=== PATIENT | female | born 1960 | race African-American/Black ===

== ENCOUNTER 2017-06-25 08:17 | Emergency (ER) | payer MEDICAID ==
[~2017-06-25] VITALS: Ht 165.1 cm; Wt 55.0 kg
[~2017-06-25 08:17] MED LIST: ATENOLOL; EDURANT; HCTZ; [UNRECOGNIZED DRUG - OTHER]; [UNRECOGNIZED DRUG - OTHER]
[2017-06-25] MEDS ORDERED: SODIUM CHLORIDE 0.9% 1,000 ML IV ONE (08:31)
[2017-06-25] MEDS ORDERED: ONDANSETRON HCL 4MG/2ML VIAL IV STA (08:31)
[2017-06-25 08:42] LABS: BASOPHILS % 0.8 % (0.0-2.0); EOSINOPHILS % 0.6 % (0.0-5.0); HEMATOCRIT. 42.7 % (36.0-48.0); HEMOGLOBIN. 14.7 g/dL (12.0-16.0); LYMPHOCYTES % 32.9 % (20.0-50.0); MEAN CORPUSCULAR HEMOGLOBIN 32.5 pg (28.0-32.0); MEAN CORPUSCULAR VOLUME 94.3 fL (81.0-99.0); MONOCYTES % 4.3 % (2.0-8.0); NEUTROPHILS % 61.4 % (40.0-76.0); PLATELET 200 x1000/uL (130-400); RED BLOOD CELL COUNT 4.53 mill/uL (4.2-5.4); RED CELL DISTRIBUTION WIDTH 12.7 % (11.6-14.6)
[2017-06-25] MEDS ORDERED: KETOROLAC 30MG/ML VIAL IV ONE (08:45)
[2017-06-25] MEDS ORDERED: FAMOTIDINE 20MG/2ML VIAL IV ONE (08:45)
[2017-06-25 08:47] LABS: CHLORIDE 107 mEq/L (98-107)
[2017-06-25 08:56] LABS: CARBON DIOXIDE 21 mEq/L (21-32)
[2017-06-25 09:57] LABS: CLARITY URINE CLEAR (CLEAR); COLOR URINE YELLOW (YELLOW); GLUCOSE URINE NEGATIVE (NEGATIVE); KETONES URINE NEGATIVE (NEGATIVE); LEUKOCYTE ESTERASE URINE NEGATIVE (NEGATIVE); NITRITE URINE NEGATIVE (NEGATIVE); OCCULT BLOOD URINE NEGATIVE (NEGATIVE); PROTEIN URINE NEGATIVE (NEGATIVE); SPECIFIC GRAVITY URINE 1.014 (1.005-1.030); UROBILINOGEN URINE 0.2 E.U./dL (0.2-1.0)
[2017-06-25 10:09] LABS: *AMPHETAMINES SCREEN URINE NEGATIVE (NEGATIVE); *BARBITURATES SCREEN URINE NEGATIVE (NEGATIVE); *BENZODIAZEPINES SCREEN URINE NEGATIVE (NEGATIVE); *COCAINE SCREEN URINE NEGATIVE (NEGATIVE); CANNABINOID URINE SCREEN PRESUMTIVE POSITIVE (NEGATIVE); METHADONE URINE SCREEN NEGATIVE (NEGATIVE); OPIATES URINE SCREEN NEGATIVE (NEGATIVE); PHENCYCLIDINE URINE SCREEN NEGATIVE (NEGATIVE)
[2017-06-25 10:49] VITALS: BP 108/65
== END 2017-06-25 11:03 | disposition home or self-care (01) ==
LOC: ER 08:17
DX: R10.13 Epigastric pain (principal); I10 Essential (primary) hypertension
CPT/HCPCS: 36415; 80053; 80305; 81003; 83690; 85025; 96361; 96374; 96375; 99284; J1885; J2405; J3490; J7030; Z7610

== ENCOUNTER 2017-08-21 10:34 | Inpatient (IN) | payer MEDICAID ==
[~2017-08-21] VITALS: Ht 157.5 cm; Wt 67.1 kg
[2017-08-21] VITALS (47 sets, daily range): BP systolic 81–134; BP diastolic 51–97
[~2017-08-21 10:34] MED LIST changes: +ETOMIDATE 2MG/ML 10ML VIAL IV ONE; +SUCCINYLCHOLINE CHLORIDE 200MG/10ML VIAL IV ONE
[2017-08-21] MEDS ORDERED: ETOMIDATE 2MG/ML 10ML VIAL IV ONE ×2 (11:00)
[2017-08-21] MEDS ORDERED: SUCCINYLCHOLINE CHLORIDE 200MG/10ML VIAL IV ONE (11:00)
[2017-08-21] MEDS ORDERED: MIDAZOLAM HCL 5 MG/ML VIAL ONE (11:13)
[2017-08-21] MEDS ORDERED: PROPOFOL 10MG/ML 100ML 100 ML IV ONE (11:20)
[2017-08-21] MEDS ORDERED: DEXAMETHASONE 10 MG/ML VIAL IV ONE (11:30)
[2017-08-21] MEDS ORDERED: PROPOFOL 10MG/ML 100ML 100 ML IV SCH (11:30)
[2017-08-21 11:55] LABS: *AMPHETAMINES SCREEN URINE NEGATIVE (NEGATIVE); *BARBITURATES SCREEN URINE NEGATIVE (NEGATIVE); *BENZODIAZEPINES SCREEN URINE NEGATIVE (NEGATIVE); *COCAINE SCREEN URINE NEGATIVE (NEGATIVE); CANNABINOID URINE SCREEN PRESUMTIVE POSITIVE (NEGATIVE); METHADONE URINE SCREEN NEGATIVE (NEGATIVE); OPIATES URINE SCREEN NEGATIVE (NEGATIVE); PHENCYCLIDINE URINE SCREEN NEGATIVE (NEGATIVE)
[2017-08-21 12:02] LABS: BASOPHILS % 1.2 % (0.0-2.0); EOSINOPHILS % 0.8 % (0.0-5.0); HEMOGLOBIN. 11.5 g/dL (12.0-16.0); LYMPHOCYTES % 40.3 % (20.0-50.0); MEAN CORPUSCULAR VOLUME 94.5 fL (81.0-99.0); MEAN PLATELET VOLUME 8.8 fl (7.4-10.4); MONOCYTES % 7.5 % (2.0-8.0); NEUTROPHILS % 50.2 % (40.0-76.0); PLATELET 207 x1000/uL (130-400)
[2017-08-21 12:18] LABS: CARBON DIOXIDE 25 mEq/L (21-32); CHLORIDE 108 mEq/L (98-107)
[2017-08-21] MEDS ORDERED: LORAZEPAM 2MG/ML CPJ ONE (12:20)
[2017-08-21] MEDS ORDERED: ONDANSETRON HCL 4MG/2ML VIAL IV PRN (13:15)
[2017-08-21] MEDS ORDERED: METHYLPREDNISOLONE SOD SUCC 40 MG/ML VIAL IV SCH (14:00)
[2017-08-21] MEDS ORDERED: IPRATROPIUM/ALBUTEROL 0.5-3(2.5)MG/3ML NEB INH PRN (14:00)
[2017-08-21] MEDS ORDERED: IPRATROPIUM/ALBUTEROL 0.5-3(2.5)MG/3ML NEB HHN PRN (14:15)
[2017-08-21] MEDS ORDERED: POTASSIUM CHLORIDE INJ 40 MEQ in SODIUM CHLORIDE 0.9% 250 ML IV ONE (14:15)
[2017-08-21] MEDS ORDERED: CEFEPIME 1,000 MG in DEXTROSE 5% WATER 50 ML IV SCH (14:15)
[2017-08-21] MEDS ORDERED: METRONIDAZOLE 500 MG PREMIX 100 ML IV SCH (14:15)
[2017-08-21] MEDS ORDERED: AZITHROMYCIN 500 MG in DEXT 5% WATER 250 ML IV SCH (14:30)
[2017-08-21] MEDS ORDERED: CEFTRIAXONE 500 MG in DEXTROSE 5% WATER 50 ML IV SCH (14:30)
[2017-08-21] MEDS: METHYLPREDNISOLONE SOD SUCC 125 MG/2 ML VIAL IV SCH ×2 (14:32→20:37)
[2017-08-21] MEDS ORDERED: SODIUM CHLORIDE 0.9% 1,000 ML IV NR (14:42)
[2017-08-21] MEDS ORDERED: EPINEPHRINE 1:1000 1 MG/ML AMP IM NR (15:00)
[2017-08-21 15:09] LABS: BG BASE EXCESS -1.7 mmol/L (-2.0-2.0); BG CARBOXYHEMOGLOBIN 0.3 % (0.5-1.5); BG DEOXYHEMOGLOBIN 0.5 % (0.0-5.0); BG FRACTION INSPIRED OXYGEN 100; BG HCO3 ACT 21.9 mmol/L (22.0-26.0); BG METHEMOGLOBIN 0.4 % (0.0-1.5); BG OXYGEN SATURATION 99.5 % (92.0-98.5); BG OXYHEMOGLOBIN 98.8 % (94.0-97.0); BG PCO2 33.5 mmHg (35.0-45.0); BG PH 7.433 (7.350-7.450); BG PO2 531.8 mmHg (75.0-100.0); BG SAMPLE SITE RIGHT RADIAL; BG TIDAL VOLUME(mL) 450 mL; BG TOTAL HEMOGLOBIN 11.9 g/dL (12.0-18.0); BG VENT MODE VENT - A/C; BG VENT RATE 12 set
[2017-08-21] MEDS: DIPHENHYDRAMINE 50MG/ML VIAL IV SCH ×2 (15:16→20:37)
[2017-08-21] MEDS: FAMOTIDINE 20MG/2ML VIAL IV SCH ×2 (15:17→20:37)
[2017-08-21] MEDS: PROPOFOL 10MG/ML 100ML 100 ML IV PRN ×2 (15:20→20:59)
[2017-08-21] MEDS ORDERED: EPINEPHRINE 1 MG in SODIUM CHLORIDE 0.9% 249 ML IV PRN (15:30)
[2017-08-21 15:54] LABS: D-DIMER 27.78 mg/L FEU (<0.50); PROTHROMBIN TIME 10.7 sec (9.4-11.6)
[2017-08-21] MEDS ORDERED: NOREPINEPHRINE 16 MG in SODIUM CHLORIDE 0.9% 234 ML IV PRN (16:00)
[2017-08-21 16:22] LABS: CARBON DIOXIDE 25 mEq/L (21-32); CHLORIDE 110 mEq/L (98-107); CREATINE KINASE 254 IU/L (26-192); CREATINE KINASE MB FRACTION 2.7 ng/mL (0.5-3.6); TROPONIN I < 0.02 ng/mL (0.00-0.04)
[2017-08-21] MEDS: ENOXAPARIN 40MG/0.4ML SYR SUBCUT SCH (17:01)
[2017-08-21] MEDS: CEFTRIAXONE 1 G PREMIX 50 ML IV SCH (17:01)
[2017-08-21] MEDS: MONTELUKAST SODIUM 10MG TABLET NG SCH (17:02)
[2017-08-21] MEDS: DEXT 5%/0.9% NACL 1,000 ML IV SCH (17:02)
[2017-08-21] MEDS: FENTANYL CITRATE/PF 500 MCG in SODIUM CHLORIDE 0.9% 40 ML IV PRN (19:38)
[2017-08-21] MEDS: IPRATROPIUM/ALBUTEROL 0.5-3(2.5)MG/3ML NEB HHN SCH (20:18)
[2017-08-21 20:27] LABS: CLARITY URINE CLEAR (CLEAR); COLOR URINE YELLOW (YELLOW); KETONES URINE NEGATIVE (NEGATIVE); LEUKOCYTE ESTERASE URINE NEGATIVE (NEGATIVE); NITRITE URINE NEGATIVE (NEGATIVE); OCCULT BLOOD URINE 2+ (NEGATIVE); PH URINE 6.5 (4.5-8.0); PROTEIN URINE NEGATIVE (NEGATIVE); SPECIFIC GRAVITY URINE 1.005 (1.005-1.030); UROBILINOGEN URINE 0.2 E.U./dL (0.2-1.0)
[2017-08-21] MEDS ORDERED: FAMOTIDINE 20MG/2ML VIAL IV SCH (21:00)
[2017-08-22] VITALS (95 sets, daily range): BP systolic 90–136; BP diastolic 45–89
[2017-08-22 00:55] LABS: CREATINE KINASE 229 IU/L (26-192); CREATINE KINASE MB FRACTION 2.2 ng/mL (0.5-3.6)
[2017-08-22 01:00] LABS: TROPONIN I < 0.02 ng/mL (0.00-0.04)
[2017-08-22] MEDS: IPRATROPIUM/ALBUTEROL 0.5-3(2.5)MG/3ML NEB HHN SCH ×4 (02:04→20:40)
[2017-08-22] MEDS: PROPOFOL 10MG/ML 100ML 100 ML IV PRN ×5 (02:06→23:39)
[2017-08-22] MEDS: DIPHENHYDRAMINE 50MG/ML VIAL IV SCH ×2 (02:16→09:15)
[2017-08-22] MEDS: METHYLPREDNISOLONE SOD SUCC 125 MG/2 ML VIAL IV SCH ×4 (02:16→21:25)
[2017-08-22] MEDS: DEXT 5%/0.9% NACL 1,000 ML IV SCH ×3 (02:32→22:22)
[2017-08-22 04:40] LABS: BASOPHILS % 0.4 % (0.0-2.0); HEMATOCRIT. 30.1 % (36.0-48.0); HEMOGLOBIN. 10.3 g/dL (12.0-16.0); LYMPHOCYTES % 9.4 % (20.0-50.0); MEAN CORPUSCULAR HEMOGLOBIN 32.3 pg (28.0-32.0); MEAN CORPUSCULAR VOLUME 94.3 fL (81.0-99.0); MEAN PLATELET VOLUME 8.9 fl (7.4-10.4); MONOCYTES % 0.6 % (2.0-8.0); NEUTROPHILS % 89.6 % (40.0-76.0); PLATELET 174 x1000/uL (130-400); RED CELL DISTRIBUTION WIDTH 12.8 % (11.6-14.6)
[2017-08-22] MEDS: CEFTRIAXONE 1 G PREMIX 50 ML IV SCH ×2 (07:20→16:50)
[2017-08-22] MEDS ORDERED: FAMOTIDINE 20MG TABLET PO SCH (09:00)
[2017-08-22] MEDS: ENOXAPARIN 40MG/0.4ML SYR SUBCUT SCH (09:13)
[2017-08-22] MEDS: FAMOTIDINE 20MG/2ML VIAL IV SCH ×2 (09:14→21:25)
[2017-08-22 09:45] LABS: BG BASE EXCESS -0.7 mmol/L (-2.0-2.0); BG CARBOXYHEMOGLOBIN 0.3 % (0.5-1.5); BG DEOXYHEMOGLOBIN 0.9 % (0.0-5.0); BG FRACTION INSPIRED OXYGEN 50; BG HCO3 ACT 23.7 mmol/L (22.0-26.0); BG METHEMOGLOBIN 0.4 % (0.0-1.5); BG OXYGEN SATURATION 99.1 % (92.0-98.5); BG OXYHEMOGLOBIN 98.4 % (94.0-97.0); BG PCO2 37.9 mmHg (35.0-45.0); BG PH 7.414 (7.350-7.450); BG PO2 215.5 mmHg (75.0-100.0); BG SAMPLE SITE RIGHT RADIAL; BG TIDAL VOLUME(mL) 450 mL; BG TOTAL HEMOGLOBIN 10.3 g/dL (12.0-18.0); BG VENT MODE VENT - A/C; BG VENT RATE 12 set
[2017-08-22] MEDS: MONTELUKAST SODIUM 10MG TABLET NG SCH (16:34)
[2017-08-23] VITALS (70 sets, daily range): BP systolic 57–169; BP diastolic 26–109
[2017-08-23] MEDS: ACETYLCYSTEINE 100MG/ML 10% VIAL 4ML INH SCH ×2 (00:05→13:35)
[2017-08-23] MEDS: IPRATROPIUM/ALBUTEROL 0.5-3(2.5)MG/3ML NEB HHN SCH ×2 (02:34→07:37)
[2017-08-23] MEDS: FENTANYL CITRATE/PF 500 MCG in SODIUM CHLORIDE 0.9% 40 ML IV PRN (03:18)
[2017-08-23] MEDS: METHYLPREDNISOLONE SOD SUCC 125 MG/2 ML VIAL IV SCH ×4 (03:24→21:40)
[2017-08-23] MEDS: CEFTRIAXONE 1 G PREMIX 50 ML IV SCH ×2 (03:24→15:37)
[2017-08-23 05:31] LABS: HEMATOCRIT. 27.6 % (36.0-48.0); HEMOGLOBIN. 9.4 g/dL (12.0-16.0); MEAN CORPUSCULAR HEMOGLOBIN 32.4 pg (28.0-32.0); MEAN CORPUSCULAR VOLUME 94.7 fL (81.0-99.0); MEAN PLATELET VOLUME 10.2 fl (7.4-10.4); PLATELET 163 x1000/uL (130-400); RED BLOOD CELL COUNT 2.92 mill/uL (4.2-5.4); RED CELL DISTRIBUTION WIDTH 12.9 % (11.6-14.6)
[2017-08-23 06:08] LABS: CARBON DIOXIDE 26 mEq/L (21-32); CHLORIDE 112 mEq/L (98-107)
[2017-08-23 07:39] LABS: BG BASE EXCESS -0.2 mmol/L (-2.0-2.0); BG CARBOXYHEMOGLOBIN 0.3 % (0.5-1.5); BG DEOXYHEMOGLOBIN 1.2 % (0.0-5.0); BG FRACTION INSPIRED OXYGEN 40; BG METHEMOGLOBIN 0.3 % (0.0-1.5); BG OXYGEN SATURATION 98.8 % (92.0-98.5); BG OXYHEMOGLOBIN 98.2 % (94.0-97.0); BG PCO2 37.1 mmHg (35.0-45.0); BG PH 7.428 (7.350-7.450); BG PO2 153.4 mmHg (75.0-100.0); BG SAMPLE SITE RIGHT BRACHIAL; BG TIDAL VOLUME(mL) 450 mL; BG TOTAL HEMOGLOBIN 10.6 g/dL (12.0-18.0); BG VENT MODE VENT - A/C; BG VENT RATE 12 set
[2017-08-23] MEDS: DEXT 5%/0.9% NACL 1,000 ML IV SCH ×2 (08:30→18:30)
[2017-08-23 09:12] LABS: ABSOLUTE LYMPHOCYTES 0.8 x10E3/uL (0.7-3.1); ABSOLUTE MONOCYTES 0.1 x10E3/uL (0.1-0.9); ABSOLUTE NEUTROPHILS 7.4 x10E3/uL (1.4-7.0); BASOPHILS 0 % (Not Estab.); HEMATOCRIT 33.2 % (34.0-46.6); HEMOGLOBIN 11.1 g/dL (11.1-15.9); IMMATURE GRANULOCYTES 0 % (Not Estab.); LYMPHOCYTES 9 % (Not Estab.); MEAN CORPUSCULAR HEMOGLOBIN 32.6 pg (26.6-33.0); MEAN CORPUSCULAR HGB CONC. 33.4 g/dL (31.5-35.7); MEAN CORPUSCULAR VOLUME 98 fL (79-97); MONOCYTES 1 % (Not Estab.); NEUTROPHILS 90 % (Not Estab.); PLATELETS 253 x10E3/uL (150-379); RED CELL DISTRIBUTION WIDTH 13.1 % (12.3-15.4); WBC 8.3 x10E3/uL (3.4-10.8)
[2017-08-23] MEDS: FAMOTIDINE 20MG/2ML VIAL IV SCH ×2 (09:43→21:40)
[2017-08-23] MEDS: ENOXAPARIN 40MG/0.4ML SYR SUBCUT SCH (09:44)
[2017-08-23] MEDS ORDERED: POTASSIUM CHLORIDE INJ 20 MEQ in SODIUM CHLORIDE 0.9% 100 ML IV SCH (10:30)
[2017-08-23] MEDS ORDERED: KCL 20MEQ/100ML PREMIX 100 ML IV SCH (10:30)
[2017-08-23 10:33] LABS: PLATELET ESTIMATE NORMAL
[2017-08-23] MEDS ORDERED: ALBUTEROL (0.083%) 2.5MG/3ML NEB HHN PRN (11:30)
[2017-08-23 13:07] LABS: % CD 3 POS. LYMPHOCYTES 62.8 % (57.5-86.2); % CD 4 POS. LYMPHOCYTES 25.9 % (30.8-58.5); % CD 8 POS. LYMPH 39.1 % (12.0-35.5); ABSOLUTE CD 3 502 /uL (622-2402); ABSOLUTE CD 4 HELPER 207 /uL (359-1519); ABSOLUTE CD 8 SUPPRESSOR 313 /uL (109-897); CD4/CD8 RATIO 0.66 (0.92-3.72)
[2017-08-23] MEDS: ALBUTEROL (0.083%) 2.5MG/3ML NEB HHN SCH ×3 (13:30→20:14)
[2017-08-23 13:32] LABS: BG BASE EXCESS 3.7 mmol/L (-2.0-2.0); BG CARBOXYHEMOGLOBIN 0.3 % (0.5-1.5); BG DEOXYHEMOGLOBIN 2.1 % (0.0-5.0); BG FRACTION INSPIRED OXYGEN 30; BG HCO3 ACT 27.7 mmol/L (22.0-26.0); BG METHEMOGLOBIN 0.5 % (0.0-1.5); BG OXYGEN SATURATION 97.9 % (92.0-98.5); BG OXYHEMOGLOBIN 97.1 % (94.0-97.0); BG PCO2 39.5 mmHg (35.0-45.0); BG PH 7.463 (7.350-7.450); BG PO2 109.6 mmHg (75.0-100.0); BG PRESSURE SUPPORT 8; BG SAMPLE SITE RIGHT BRACHIAL; BG TOTAL HEMOGLOBIN 10.9 g/dL (12.0-18.0); BG VENT MODE VENT - CPAP
[2017-08-23] MEDS ORDERED: RACEPINEPHRINE 2.25% 0.5ML NEB VIAL HHN NR (15:10)
[2017-08-23] MEDS: MONTELUKAST SODIUM 10MG TABLET NG SCH (17:00)
[2017-08-24] VITALS (24 sets, daily range): BP systolic 104–145; BP diastolic 59–92
[2017-08-24] MEDS: ALBUTEROL (0.083%) 2.5MG/3ML NEB HHN SCH ×3 (00:02→08:21)
[2017-08-24] MEDS: METHYLPREDNISOLONE SOD SUCC 125 MG/2 ML VIAL IV SCH ×2 (03:20→10:01)
[2017-08-24] MEDS: CEFTRIAXONE 1 G PREMIX 50 ML IV SCH (03:20)
[2017-08-24] MEDS: DEXT 5%/0.9% NACL 1,000 ML IV SCH (03:20)
[2017-08-24 08:04] LABS: BG BASE EXCESS 5.9 mmol/L (-2.0-2.0); BG CARBOXYHEMOGLOBIN 0.2 % (0.5-1.5); BG DEOXYHEMOGLOBIN 2.4 % (0.0-5.0); BG FRACTION INSPIRED OXYGEN 28; BG HCO3 ACT 29.5 mmol/L (22.0-26.0); BG METHEMOGLOBIN 0.5 % (0.0-1.5); BG OXYGEN SATURATION 97.6 % (92.0-98.5); BG OXYHEMOGLOBIN 96.9 % (94.0-97.0); BG PH 7.497 (7.350-7.450); BG PO2 105.3 mmHg (75.0-100.0); BG SAMPLE SITE RIGHT BRACHIAL; BG VENT MODE NASAL CANNULA
[2017-08-24] MEDS ORDERED: P20 PO (09:25)
[2017-08-24] MEDS ORDERED: FAMO40TA70 PO (09:25)
[2017-08-24] MEDS: FAMOTIDINE 20MG/2ML VIAL IV SCH (10:01)
[2017-08-24] MEDS: ENOXAPARIN 40MG/0.4ML SYR SUBCUT SCH (10:02)
[2017-08-24] MEDS ORDERED: POTASSIUM CHLORIDE 20MEQ/PACKET PO NR (10:30)
[2017-08-24] MEDS ORDERED: DARU1TAB PO (10:52)
[2017-08-24] MEDS ORDERED: BENA20TA3 PO (10:55)
[2017-08-24] MEDS ORDERED: EMTR1TAB12 PO (10:57)
[2017-08-24] MEDS ORDERED: LORA10TA7 PO (11:17)
[2017-08-24] MEDS ORDERED: ACETYLCYSTEINE 200MG/ML 20% VIAL 4ML INH SCH (22:00)
== END 2017-08-24 12:45 | disposition home or self-care (01) | DRG 811 ==
LOC: EDBEDREQ 11:44 → ER 12:42 → MICUSO 12:43 → ENRESERV 13:02
PROVIDERS: ADMIT Internal Medicine; ATTEND Internal Medicine
PROC: 0BH17EZ Insertion of Endotracheal Airway into Trachea, Via Natural or Artificial Opening (ICD-10-PCS; principal; 2017-08-21)
PROC: 5A1945Z Respiratory Ventilation, 24-96 Consecutive Hours (ICD-10-PCS; 2017-08-21)
PROC: 30233L1 Transfusion of Nonautologous Fresh Plasma into Peripheral Vein, Percutaneous Approach (ICD-10-PCS; 2017-08-21)
PROC: 30233K1 Transfusion of Nonautologous Frozen Plasma into Peripheral Vein, Percutaneous Approach (ICD-10-PCS; 2017-08-21)
PROC: 02HV33Z Insertion of Infusion Device into Superior Vena Cava, Percutaneous Approach (ICD-10-PCS; 2017-08-21)
PROC: B548ZZA Ultrasonography of Superior Vena Cava, Guidance (ICD-10-PCS; 2017-08-21)
DX: T78.2XXA Anaphylactic shock, unspecified, initial encounter (principal); J96.00 Acute respiratory failure, unspecified whether with hypoxia or hypercapnia; T78.3XXA Angioneurotic edema, initial encounter; I10 Essential (primary) hypertension; R73.9 Hyperglycemia, unspecified; F17.200 Nicotine dependence, unspecified, uncomplicated; R00.1 Bradycardia, unspecified; F43.9 Reaction to severe stress, unspecified; R45.1 Restlessness and agitation; Z79.899 Other long term (current) drug therapy; Z71.6 Tobacco abuse counseling
CPT/HCPCS: 31500; 36415; 36569; 36600; 51702; 71010; 76937; 80048; 80053; 80061; 80305; 81001; 82375; 82550; 82553; 82805; 83036; 83735; 84478; 84484; 85025; 85379; 85610; 86359; 86360; 86850; 86900; 86927; 93970; 94002; 94003; 94640; 99291; C1725; J0171; J0330; J0696; J1100; J1200; J1650; J2060; J2250; J2704; J2930; J3010; J3480; J3490; J7030; J7040; J7042; J7050; J7608; J7611; J7620; P9017; A4315

== ENCOUNTER 2018-01-05 10:04 | Emergency (ER) | payer MEDICAID ==
[~2018-01-05] VITALS: Ht 162.6 cm; Wt 64.0 kg
[~2018-01-05 10:04] MED LIST changes: +DARU1TAB PO; +EMTR1TAB12 PO; -ETOMIDATE 2MG/ML 10ML VIAL IV ONE; +FAMO40TA70 PO; +LORA10TA7 PO; -SUCCINYLCHOLINE CHLORIDE 200MG/10ML VIAL IV ONE
[2018-01-05] MEDS ORDERED: SODIUM CHLORIDE 0.9% 1,000 ML IV ONE ×2 (11:30→14:28)
[2018-01-05] MEDS ORDERED: ONDANSETRON HCL 4MG/2ML VIAL IV STA (11:30)
[2018-01-05] MEDS ORDERED: MORPHINE SULFATE 4 MG/ML CPJ (NOT FOR IM USE) IV STA (11:30)
[2018-01-05 11:58] LABS: BASOPHILS % 0.5 % (0.0-2.0); EOSINOPHILS % 0.1 % (0.0-5.0); HEMATOCRIT. 41.6 % (36.0-48.0); HEMOGLOBIN. 14.3 g/dL (12.0-16.0); LYMPHOCYTES % 13.6 % (20.0-50.0); MEAN CORPUSCULAR HEMOGLOBIN 32.1 pg (28.0-32.0); MEAN CORPUSCULAR VOLUME 93.3 fL (81.0-99.0); MEAN PLATELET VOLUME 9.1 fl (7.4-10.4); MONOCYTES % 2.5 % (2.0-8.0); NEUTROPHILS % 83.3 % (40.0-76.0); PLATELET 203 x1000/uL (130-400); RED BLOOD CELL COUNT 4.45 mill/uL (4.2-5.4); RED CELL DISTRIBUTION WIDTH 13.1 % (11.6-14.6)
[2018-01-05 12:00] LABS: CHLORIDE 106 mEq/L (98-107)
[2018-01-05 12:02] LABS: PROTHROMBIN TIME 10.7 sec (9.4-11.6)
[2018-01-05 12:28] LABS: CLARITY URINE CLEAR (CLEAR); COLOR URINE YELLOW (YELLOW); KETONES URINE 2+ (NEGATIVE); LEUKOCYTE ESTERASE URINE NEGATIVE (NEGATIVE); NITRITE URINE NEGATIVE (NEGATIVE); OCCULT BLOOD URINE NEGATIVE (NEGATIVE); PH URINE 8.5 (4.5-8.0); PROTEIN URINE TRACE (NEGATIVE); SPECIFIC GRAVITY URINE 1.014 (1.005-1.030); UROBILINOGEN URINE 0.2 E.U./dL (0.2-1.0)
[2018-01-05 13:01] LABS: *AMPHETAMINES SCREEN URINE NEGATIVE (NEGATIVE); *BARBITURATES SCREEN URINE NEGATIVE (NEGATIVE); *BENZODIAZEPINES SCREEN URINE NEGATIVE (NEGATIVE); *COCAINE SCREEN URINE NEGATIVE (NEGATIVE); METHADONE URINE SCREEN NEGATIVE (NEGATIVE)
[2018-01-05 13:02] LABS: CANNABINOID URINE SCREEN PRESUMTIVE POSITIVE (NEGATIVE); OPIATES URINE SCREEN NEGATIVE (NEGATIVE); PHENCYCLIDINE URINE SCREEN NEGATIVE (NEGATIVE)
[2018-01-05] MEDS ORDERED: IOHEXOL-300 100 ML BOTTLE ONE (14:21)
[2018-01-05] MEDS ORDERED: FAMOTIDINE 20MG/2ML VIAL IV STA (14:28)
[2018-01-05] MEDS ORDERED: POTASSIUM CHLORIDE 10MEQ TABLET SR PO ONE (14:30)
[2018-01-05] MEDS ORDERED: POTASSIUM CHLORIDE 10MEQ TABLET SR PO NR (15:00)
[2018-01-05 18:14] VITALS: BP 125/75
== END 2018-01-05 18:14 | disposition home or self-care (01) ==
LOC: ER 10:07
DX: R10.84 Generalized abdominal pain (principal); F12.10 Cannabis abuse, uncomplicated; F17.200 Nicotine dependence, unspecified, uncomplicated; Z20.6 Contact with and (suspected) exposure to human immunodeficiency virus [HIV]
CPT/HCPCS: 36415; 71045; 74177; 80053; 80305; 81003; 83690; 85025; 85610; 93005; 96361; 96374; 96375; 99285; J2270; J2405; J3490; J7030; Q9967; Z7610

== ENCOUNTER 2020-12-31 09:15 | Emergency (ER) | payer MEDICAID ==
[~2020-12-31] VITALS: Ht 165.1 cm; Wt 66.0 kg
[2020-12-31] MEDS ORDERED: FAMOTIDINE 20MG/2ML VIAL IV STA (09:31)
[2020-12-31] MEDS ORDERED: ONDANSETRON HCL 4MG/2ML INJ IV STA (09:31)
[2020-12-31] MEDS ORDERED: MORPHINE SULFATE 4 MG/ML CPJ (NOT FOR IM USE) IV STA (09:31)
[2020-12-31] MEDS ORDERED: SODIUM CHLORIDE 0.9% 1,000 ML IV ONE (09:45)
[2020-12-31 09:48] LABS: BASOPHILS % 0.3 % (0.0-2.0); HEMATOCRIT. 41.5 % (36.0-48.0); HEMOGLOBIN. 14.4 g/dL (12.0-16.0); LYMPHOCYTES % 13.7 % (20.0-50.0); MEAN CORPUSCULAR HEMOGLOBIN 33.2 pg (28.0-32.0); MEAN CORPUSCULAR VOLUME 95.5 fL (81.0-99.0); MONOCYTES % 3.6 % (2.0-8.0); NEUTROPHILS % 82.4 % (40.0-76.0); PLATELET 221 x1000/uL (130-400); RED BLOOD CELL COUNT 4.34 mill/uL (4.2-5.4); RED CELL DISTRIBUTION WIDTH 13.4 % (11.6-14.6)
[2020-12-31 09:54] LABS: CHLORIDE 106 mEq/L (98-107)
[2020-12-31 09:59] LABS: PROTHROMBIN TIME 10.7 sec (9.6-11.0)
[2020-12-31] MEDS ORDERED: POTASSIUM CHLORIDE 20MEQ TABLET SR PO NR (10:00)
[2020-12-31 10:20] LABS: HCG SCREEN NEGATIVE
[2020-12-31 12:22] LABS: CLARITY URINE CLEAR (CLEAR); COLOR URINE YELLOW (YELLOW); KETONES URINE NEGATIVE (NEGATIVE); LEUKOCYTE ESTERASE URINE NEGATIVE (NEGATIVE); NITRITE URINE NEGATIVE (NEGATIVE); OCCULT BLOOD URINE NEGATIVE (NEGATIVE); PH URINE 8.5 (4.5-8.0); PROTEIN URINE 1+ (NEGATIVE); SPECIFIC GRAVITY URINE 1.013 (1.005-1.030); UROBILINOGEN URINE 0.2 E.U./dL (0.2-1.0)
[2020-12-31] MEDS ORDERED: FAMO-262 PO (12:42)
[2020-12-31] MEDS ORDERED: ONDA4TAB11 PO (12:42)
[2020-12-31 12:45] LABS: *AMPHETAMINES SCREEN URINE NEGATIVE (NEGATIVE)
[2020-12-31 12:46] LABS: *BARBITURATES SCREEN URINE NEGATIVE (NEGATIVE); *BENZODIAZEPINES SCREEN URINE NEGATIVE (NEGATIVE); *COCAINE SCREEN URINE NEGATIVE (NEGATIVE); CANNABINOID URINE SCREEN PRESUMTIVE POSITIVE (NEGATIVE); METHADONE URINE SCREEN NEGATIVE (NEGATIVE); OPIATES URINE SCREEN PRESUMTIVE POSITIVE (NEGATIVE); PHENCYCLIDINE URINE SCREEN NEGATIVE (NEGATIVE)
[2020-12-31 13:40] VITALS: BP 149/86
== END 2020-12-31 14:05 | disposition home or self-care (01) ==
LOC: ER 09:22
DX: K29.70 Gastritis, unspecified, without bleeding (principal); F12.10 Cannabis abuse, uncomplicated; E87.6 Hypokalemia; I10 Essential (primary) hypertension; Z98.890 Other specified postprocedural states; Z79.899 Other long term (current) drug therapy
CPT/HCPCS: 36415; 80053; 80305; 81003; 83690; 84484; 84703; 85025; 85610; 93005; 96361; 96374; 96375; 99284; J2270; J2405; J3490; J7030